=== PATIENT | female | born 1980 | race Native Hawaiian/Other Pacific Islander ===

== ENCOUNTER 2017-01-13 14:36 | Emergency (ER) | payer OTHER ==
[~2017-01-13] VITALS: Ht 167.6 cm; Wt 115.7 kg
[~2017-01-13 14:36] MED LIST: ASPIRIN81 M1 PO; CYMBALTA60 MG PO; DOCUSATE SODIU100 M4 PO; FLAGYL500 MG PO; FLEXERIL10 M1 PO; LEVAQUIN500 MG PO; MOBIC15 MG PO; MOTRIN800 M1 PO; MULTI VITAMINS1 TAB PO; NAPROSYN375 MG PO; NEURONTIN300 M1 PO; NEURONTIN300 MG PO; NORCO 325 MG-51 TAB PO; PANTOPRAZOLE SO20 MG PO; SULFAMETHOXAZOLE PO; TRIMETHOPRIM PO; VICODIN 500 MG-1 TA1 PO; ZYRTEC; motrin
[2017-01-13 14:51] VITALS: BP 111/58
--- NOTE | 2017-01-13 22:24 | NUR ---
PATIENT LEFT WITHOUT BEING SEEN BY DR. BARTH. NO FURTHER CARE PROVIDED FOR PATIENT.
--- NOTE | 2017-01-13 22:24 | NUR ---
PATIENT LEFT WITHOUT BEING SEEN BY DR. PURI. NO FURTHER CARE PROVIDED FOR PATIENT.
== END 2017-01-13 22:24 | disposition left against medical advice (07) ==
LOC: MED 14:51
DX: M25.472 Effusion, left ankle (principal); Z53.21 Procedure and treatment not carried out due to patient leaving prior to being seen by health care provider; W06.XXXA Fall from bed, initial encounter; Y93.89 Activity, other specified; Y92.89 Other specified places as the place of occurrence of the external cause; Y99.8 Other external cause status

== ENCOUNTER 2017-09-20 13:13 | Emergency (ER) | payer OTHER ==
[~2017-09-20] VITALS: Ht 167.6 cm; Wt 116.7 kg
[~2017-09-20 13:13] MED LIST changes: +ASPI81CT89 PO; -ASPIRIN81 M1 PO; -CYMBALTA60 MG PO; -DOCUSATE SODIU100 M4 PO; +DULO60EC PO; -FLAGYL500 MG PO; -FLEXERIL10 M1 PO; +GABA300C PO; -LEVAQUIN500 MG PO; +MELO15TA11 PO; -MOBIC15 MG PO; -MOTRIN800 M1 PO; +MULT-2410 PO; -MULTI VITAMINS1 TAB PO; +NAPR375T2 PO; -NAPROSYN375 MG PO; -NEURONTIN300 M1 PO; -NEURONTIN300 MG PO; -NORCO 325 MG-51 TAB PO; -PANTOPRAZOLE SO20 MG PO; -SULFAMETHOXAZOLE PO; -TRIMETHOPRIM PO; -VICODIN 500 MG-1 TA1 PO; -ZYRTEC; -motrin
[2017-09-20 13:42] VITALS: BP 117/73
[2017-09-20] MEDS ORDERED: BACITRACIN OINT 500 UNITS/GM PKT TP ONE (18:35)
[2017-09-20] MEDS ORDERED: LIDOCAINE 1% ***ER ONLY *** 10 MG/ML VIAL INJ ONE (18:35)
[2017-09-20 19:30] VITALS: BP 123/78
== END 2017-09-20 19:30 | disposition home or self-care (01) ==
LOC: MED 13:13
DX: L02.31 Cutaneous abscess of buttock (principal); K21.9 Gastro-esophageal reflux disease without esophagitis; Z79.82 Long term (current) use of aspirin; Z79.899 Other long term (current) drug therapy; Z88.5 Allergy status to narcotic agent
CPT/HCPCS: 10060; 99283; J2001

== ENCOUNTER 2017-09-23 12:14 | Emergency (ER) | payer OTHER ==
[~2017-09-23] VITALS: Ht 167.6 cm; Wt 116.3 kg
--- NOTE | 2017-09-23 13:14 | NUR ---
AMBULATES BACK TO THE LOBBY
--- NOTE | 2017-09-23 13:50 | NUR ---
RECHECK FOR LT BUTTOCKS ABSCESS SEEN HERE ON 09/15/2017 HX; FIGROMYALGIA, SPINOBIFIDA RX; GABAPENTIN, ASPIRIN, NAPROXIN DENIES N/V/D; SKIN IS PINK/WARM/DRY; AAOX4 WITH EVEN AND STEADY GAIT; LUNGS CLEAR BL; HR EVEN AND REGULAR; PT DENIES ANY FEVER, CP, SOB, OR COUGH AT THIS TIME; PATIENT STATES PAIN OF 7/10 AT THIS TIME; VSS; PATIENT POSITIONED FOR COMFORT; HOB ELEVATED; BEDRAILS UP X2; BED DOWN. ER MD MADE AWARE OF PT STATUS.
--- NOTE | 2017-09-23 14:10 | NUR ---
Patient discharged with v/s stable. Written and verbal after care instructions given and explained. Patient alert, oriented and verbalized understanding of instructions. Ambulatory with . All questions addressed prior to discharge. ID band removed. Patient advised to follow up with PMD. Rx of KEFLEX AND NAPROSN given. Patient educated on indication of medication including possible reaction and side effects. Opportunity to ask questions provided and answered.
== END 2017-09-23 14:10 | disposition home or self-care (01) ==
LOC: MED 12:14
DX: Z48.01 Encounter for change or removal of surgical wound dressing (principal); K21.9 Gastro-esophageal reflux disease without esophagitis; Z79.899 Other long term (current) drug therapy; Z79.82 Long term (current) use of aspirin; Z88.5 Allergy status to narcotic agent; Z90.89 Acquired absence of other organs
CPT/HCPCS: 99283

== ENCOUNTER 2018-08-09 14:37 | Emergency (ER) | payer OTHER ==
[~2018-08-09] VITALS: Ht 167.6 cm; Wt 110.3 kg
[2018-08-09 14:45] VITALS: BP 127/78
[2018-08-09 15:47] VITALS: BP 129/89
== END 2018-08-09 15:47 | disposition home or self-care (01) ==
LOC: MED 14:37
DX: H11.33 Conjunctival hemorrhage, bilateral (principal); Z79.82 Long term (current) use of aspirin; Z79.1 Long term (current) use of non-steroidal anti-inflammatories (NSAID); Z79.899 Other long term (current) drug therapy; Z88.5 Allergy status to narcotic agent; M79.7 Fibromyalgia
CPT/HCPCS: 81002; 81025; 99283

== ENCOUNTER 2018-09-08 07:56 | Emergency (ER) | payer OTHER ==
[~2018-09-08] VITALS: Ht 167.6 cm; Wt 112.5 kg
[2018-09-08] MEDS ORDERED: IBUPROFEN 400 MG TAB PO ONE (08:20)
[2018-09-08 09:18] LABS: BASOPHILS % (AUTO) 0.6 % (0.0-2.0); EOSINOPHILS # (AUTO) 0.1 K/uL (0-0.4); EOSINOPHILS % (AUTO) 1.3 % (0.0-4.0); HEMATOCRIT 35.2 % (36-48); HEMOGLOBIN 11.4 g/dL (12.0-16.0); LYMPHOCYTES # (AUTO) 2.5 K/uL (2.5-16.5); LYMPHOCYTES % (AUTO) 32.7 % (20.5-51.1); MEAN CORPUSCULAR HEMOGLOBIN 29 pg (27-31); MEAN CORPUSCULAR HGB CONC 32 g/dL (33-37); MEAN CORPUSCULAR VOLUME 90.7 fL (80-94); MONOCYTES # (AUTO) 0.4 K/uL (0.8-1.0); MONOCYTES % (AUTO) 4.6 % (1.7-9.3); NEUTROPHILS # (AUTO) 4.7 K/uL (1.8-7.7); NEUTROPHILS % (AUTO) 60.8 % (42.2-75.2); PLATELET COUNT (AUTO) 351 K/uL (140-450); RED BLOOD CELL COUNT(AUTO) 3.88 MIL/uL (4.20-5.40); RED CELL DISTRIBUTION WIDTH 13.9 % (11.6-13.7); WHITE BLOOD COUNT (AUTO) 7.7 K/uL (4.8-10.8)
[2018-09-08 10:26] VITALS: BP 120/62
== END 2018-09-08 10:26 | disposition home or self-care (01) ==
LOC: MED 07:56
DX: D25.9 Leiomyoma of uterus, unspecified (principal); N92.1 Excessive and frequent menstruation with irregular cycle; D64.9 Anemia, unspecified; N83.202 Unspecified ovarian cyst, left side; F17.210 Nicotine dependence, cigarettes, uncomplicated; Z88.5 Allergy status to narcotic agent; Z79.899 Other long term (current) drug therapy; Z79.82 Long term (current) use of aspirin
CPT/HCPCS: 36415; 76830; 81002; 81025; 84443; 85025; 93976; 99284; Q0092